=== PATIENT | female | born 1985 | race Caucasian/White ===

== ENCOUNTER 2019-07-15 09:39 | Outpatient (CLI) | payer MEDICAID, SELFPAY ==
--- NOTE | 2019-07-15 10:36 | NM_ITS ---
WS: [id number] NUCLEAR MEDICINE HIDA SCAN CLINICAL INFORMATION: ABDOMINAL PAIN TECHNIQUE: Following intravenous administration of 7.5 mCi of technetium 99m mebrofenin, images of th e abdomen were obtained over the course of 60 minutes. Next, gallbladder ejection fraction was determ ined by obtaining preprandial and one-hour postprandial images of the gallbladder following oral vasquez stion of Ensure. COMPARISON: Ultrasound June 20, 2019 FINDINGS: Normal hepatic uptake at 5 minutes. Normal hepatic excretion. Gallbladder is visualized by 10 minutes . No evidence of acute cholecystitis. Normal small bowel. No evidence of choledocholithiasis. Gallbladder ejection fraction 80% within normal limits. No evidence of chronic cholecystitis. NM/NM hepatobiliary w phar* [id number] IMPRESSION: 1. No evidence of acute or chronic cholecystitis. 2. Gallbladder ejection fraction 80% within normal limits
== END 2019-07-15 09:40 | disposition home or self-care (01) ==
LOC: RAD 09:40
PROVIDERS: Family Provider Nurse Practitioner Family; PCP Nurse Practitioner Family; Visit Provider Surgery
DX: R10.9 Unspecified abdominal pain (principal)
CPT/HCPCS: 78227; A9537

== ENCOUNTER 2019-08-05 11:09 | Day surgery (SDC) | payer MEDICAID, SELFPAY ==
[2019-08-02 10:12] VITALS: BMI 32.9
[2019-08-05] VITALS (12 sets, daily range): BP systolic 142–165; BP diastolic 77–99; PULSE 51–75; RESP 10–20; TEMP 36.5–36.9; O2SAT 97–100
[2019-08-05 12:41] LABS: OR HCG Qualitative Urine Negative (Negative)
--- NOTE | 2019-08-05 13:13 | ANES.PREANE2 ---
Pre-Anesthetic Assessment Pre-Anesthetic Assessment: Height/Weight: Height 1.63 m Weight 87.09 kg Temp Pulse Resp BP Pulse Ox 97.7 F 68 18 142/99 99 08/05/19 12:35 08/05/19 12:35 08/05/19 12:35 08/05/19 12:35 08/05/19 12:35 Preop Diagnosis: Biliary Colic Proposed Procedure: Operation Date: 08/05/19 13:55 Proposed Procedures p Laparoscopic Cholecystectomy 62089 R10.11(Not Applicable) - Darrel Yates MD Last intake: Intake Last Liquid Date 08/05/19 Last Liquid Time 07:30 Last Solid Date 08/04/19 Last Solid Time 21:00 Exam: Pre-Anes Outpt Exam: alert, oriented x 3, clear to auscultation bilaterally and regular rate & rhythm Airway: Submandibular: WNL Cervical ROM: WNL MP: 2 GI: Comments: biliary colic Musc/skel: Musc/skel: Lower Back Pain Comments: left radiculopathy Neuropsych: Neuropsych: Depression and WHITE Anesthetic Plan: ASA status: 3 Anesthesia: General PFSH Anesthesia PFSH: Medical History (Updated 07/27/19 @ 10:04 by Darrel Yates MD) Abdominal pain (Acute) Depression (Acute) Fatty infiltration of liver (Acute) Right upper quadrant abdominal pain (Acute) Family History (Updated 07/25/19 @ 13:23 by Myrna Spicer RN) Denies family history of Anesthesia complication Bleeding disorder Social History (Updated 07/25/19 @ 13:24 by Myrna Spicer RN) Smoking and tobacco status: never smoked Second hand smoke exposure: No Alcohol intake: never Adopted: No Caregiver/support person: Yes Lives independently: Yes Household members: spouse and family Housing: House Marital status: Highest education level completed: High School Graduate service: No Current occupational status: employed Current occupational exposures/hazards: No Pets and animals: Yes History of recent travel: No Sexually active: Yes Current gender identity: Female [place]/Congregational: Buddhism Special kenya needs: No Agree to transfusion: No Financial difficulty paying for basics: Decline to Answer Female Reproductive History: Date of last menstrual period: 08/01/19 Para: 4 Spontaneous abortions: Yes (2) Data Anesthesia Other Labs: Laboratory Results - last 48 hr 08/05/19 12:38 Urine HCG, Qual Negative Cardiac Studies: No Data to Display
[2019-08-05] MEDS: sodium chloride 0.9% 1,000 ML 30 ML IV (13:26)
--- NOTE | 2019-08-05 14:10 | PM.HPUD ---
H&P update H&P Update: DATE OF SURGERY/PROCEDURE: 08/05/19 DATE H&P PERFORMED: 07/25/19 H&P UPDATE INFORMATION: H&P completed within last 30 days and No changes to prior documentation PREOP DIAGNOSIS: Biliary Colic PLANNED PROCEDURE: Operation Date: 08/05/19 13:55 Proposed Procedures p Laparoscopic Cholecystectomy 69209 R10.11(Not Applicable) - Darrel Yates MD Full H&P Medications/Allergies: Current Medications: Current Medications Generic Name Dose Route Start Last Admin Trade Name Alfredoq PRN Reason Stop Dose Admin Sodium Chloride 1,000 mls @ 30 ml s/hr 08/05/19 12:45 08/05/19 13:26 Sodium Chloride 0.9% IV 08/06/19 12:44 30 mls/hr .Q24H ZEFERINO Administration Perinent History: Medical/Surgical History: Medical History (Updated 07/27/19 @ 10:04 by Darrel Yates MD) Abdominal pain (Acute) Depression (Acute) Fatty infiltration of liver (Acute) Right upper quadrant abdominal pain (Acute) Family History: Family History (Updated 07/25/19 @ 13:23 by Myrna Spicer RN) Denies family history of Anesthesia complication Bleeding disorder Social History: Social History Smoking and tobacco status: never smoked Second hand smoke exposure: No Alcohol intake: never Adopted: No Caregiver/support person: Yes Lives independently: Yes Household members: spouse and family Housing: House Marital status: Highest education level completed: High School Graduate service: No Current occupational status: employed Current occupational exposures/hazards: No Pets and animals: Yes History of recent travel: No Sexually active: Yes Current gender identity: Female [place]/Confucianism: Amish Special kenya needs: No Agree to transfusion: No Financial difficulty paying for basics: Decline to Answer
[2019-08-05] MEDS: lidocaine 2% INJ 20 mL INJECTION (14:58)
--- NOTE | 2019-08-05 15:37 | PM.OP ---
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 All questions have been answered and all concerns have been addressed to patient's satisfaction. Informed consent per chart Procedure: Patient was identified in the holding area and taken back to the operative suite, placed in supine position intubated by anesthesia . Time-out was done verifying the patient's name/date of /planned procedure and destination after the procedure, all were in agreement. SCDs confirmed to be functioning, preoperative antibiotics administered per protocol, and beta kyler protocol was confirmed. Patient was appropriately secured to the table, footboard was applied to the OR table, before prep and drape anesthesia was asked to tilt the table back and forth to make sure that the patient is appropriately secured and she was. Prep and drape of the abdomen was done under the usual sterile technique, followed by that Infraumbilical skin incision,skin incision was done by a 15 blade knife, and stay sutures were applied to the fascia and Ferro trocar technique was used to enter the abdominal without injuring any abdominal viscera, started by low flow gas insufflation followed by a high flow, started with a 10 mm laparoscope and under direct vision there was no evidence of any injuries, the scope then switched to a 30? ,10 millimeter scope and under direct visualization 5 millimeter trocar was inserted in the epigastric region followed by two 5 mm trocars were inserted in the right upper quadrant that was done after injection of local lidocaine 2% at all incision sites. Gallbladder showed chronic cholecystitis Patient was then positioned in the head up and tilted to the left dissection started by taking adhesions down using [place] forceps with heat, continued dissection until I identified the critical view of the cystic duct and cystic artery where seen connected to the gallbladder. Clips were applied on the cystic duct towards the common bile duct 1 towards the gallbladder then divided is in sharp scissors, 3 clips were then applied onto the cystic artery and 1 towards the gallbladder and divided by sharp scissors. There was additional vessel traversing the gallbladder fossa that was clipped as well and divided Dissection was then carried along of the gallbladder from the gallbladder fossa using cautery as well as sharp dissection with heat energy. The gallbladder then was dissected out from the gallbladder fossa totally , cholecystectomy was then achieved and was placed in an Endo Catch bag and then retrieved from the Ferro trocar site under direct visualization using a 5 mm 30? scope through the epigastric trocar, specimen was then passed to the circulating nurse to go for permanent pathology,irrigation and hemostasis was done to the gallbladder fossa after hemostasis was secured, final survey laparoscopy was done that showed no injuries. Suction irrigation was obtained The infraumbilical fascial defect was then closed using interrupted Vicryl sutures using a fascial closure device ;Amari Beckford under direct visualization Gas was allowed to deflate,Trocars were then taken out under direct vision there was no evidence of bleeding Specimen was passed to the circulating nurse for permanent pathology. No drains were placed and the infra umbilical incision as well as all trocar sites were closed by by 4-0 Monocryl to approximate the skin edges of the Infraaumbilical incision, dressing was applied in the form of Dermabond and the patient patient got extubated and was taken to recovery area in a stable condition. Count of sponges, needles and instruments were completed at the end of the procedure I was present for the whole entire procedure.
[2019-08-05] MEDS: fentaNYL 50 mcg/mL INJ 2mL IVP ×2 (15:51→15:56)
[2019-08-05] MEDS: morphine 4 mg/mL SDV 1 mL 2 MG IVP ×2 (16:00→16:02)
[2019-08-05] MEDS: HYDROcodone-acetaminophen 5-325 mg Tablet 1 TAB PO (16:35)
== END 2019-08-05 17:11 | disposition home or self-care (01) ==
PROVIDERS: Family Provider Nurse Practitioner Family; PCP Nurse Practitioner Family; Visit Provider Surgery
PROC: 0FT44ZZ Resection of Gallbladder, Percutaneous Endoscopic Approach (ICD-10-PCS; CPT 47562; principal; 2019-08-05 13:55)
DX: K81.1 Chronic cholecystitis (principal)
CPT/HCPCS: 47562; 12345; 81025; 84703; 88304; J0131; J0690; J1100; J2001; J2250; J2270; J2405; J2704; J2710; J3010; J3490; J7030

== ENCOUNTER 2019-09-16 19:05 | Emergency (ER) | payer MEDICAID, SELFPAY ==
[2019-09-16 19:34] VITALS: BP 170/115; PULSE 98; RESP 16; TEMP 37.3; O2SAT 98; BMI 30.9
--- NOTE | 2019-09-16 19:59 | W.ED.GENADLT ---
HPI - General Adult General: Chief complaint: General Medical Stated complaint: sore throat Time Seen by Provider: 09/16/19 19:51 Source: patient Mode of arrival: ambulatory Limitations: no limitations History of Present Illness: HPI narrative: Patient presents with sore throat since yesterday. Patient also reports a subjective fever. Patient appears mildly unwell. Patient denies any cough or nasal drainage or shortness of breath. Patient denies any exposure to known case of coronavirus. Patient reports that this feels like it when she has strep. Review of Systems General: Reports: 10 or more systems reviewed and unremarkable except in HPI and below ENMT: Reports: throat pain PFSH ED PFSH: Social History Smoking and tobacco status: current every day smoker cigarettes Packs smoked per day: 0.25 Second hand smoke exposure: No Alcohol intake: never Adopted: No Caregiver/support person: Yes Lives independently: Yes Household members: spouse and family Housing: House Marital status: Highest education level completed: High School Graduate service: No Current occupational status: unemployed Current occupational exposures/hazards: No Pets and animals: Yes History of recent travel: No Sexually active: Yes Current gender identity: Female [place]/Shinto: Nondenominational Special kenya needs: No Agree to transfusion: No Financial difficulty paying for basics: Decline to Answer Female Reproductive History: Date of last menstrual period: 09/03/19 Para: 4 Spontaneous abortions: Yes (2) Physical Exam Const: COMMON NORMALS: no apparent distress and oriented x3 GENERAL APPEARANCE: cooperative HENMT: COMMON NORMALS: normocephalic, external ears normal, EAC's normal, TM's normal bilaterally and external nose normal HEAD & SCALP: normal to inspection and normocephalic FACE & SINUS: normal facial exam NOSE: external nose normal GENERAL EAR: hearing not grossly impaired EXTERNAL EAR: Yes external ears normal EXTERNAL AUDITORY CANAL: EAC's normal TYMPANIC MEMBRANE: TM's normal bilaterally MOUTH: oral and palatal mucosa normal THROAT: posterior oropharynx abnormal erythema Eye: COMMON NORMALS: PERRL and EOMs intact bilaterally PUPIL: Yes PERRL Neck/C-Spine: COMMON NORMALS: full ROM and no lymphadenopathy Lymph: LYMPHATIC: no lymphedema noted Chest: COMMONS NORMALS: inspection of chest normal and palpation of chest normal Resp: COMMON NORMALS: normal respiratory effort and clear to auscultation bilaterally AUSCULTATION: clear to auscultation bilaterally Cardio: COMMON NORMALS: regular rate and regular rhythm RATE: regular rate RHYTHM: regular rhythm GI: COMMON NORMALS: normal to inspection, nondistended, normoactive bowel sounds and non-tender : COMMON NORMALS: Yes no CVA tenderness BLADDER/KIDNEY EXAM: Yes no CVA tenderness Back/Pelvis: COMMON NORMALS: no CVA tenderness and thoracic and lumbar spine normal to inspection Extremity: COMMON NORMALS: normal to inspection GENERAL: No edema Neuro: COMMON NORMALS: oriented x3, moves all extremities and no focal motor deficits Psych: COMMON NORMALS: mental status grossly normal and cooperative Skin: COMMON NORMALS: no rashes or lesions noted GENERAL SKIN EXAM: no rashes or lesions noted Course Vital Signs: Vital signs: Vital Signs Temperature 99.1 F 09/16/19 19:34 Pulse Rate 98 09/16/19 19:34 Respiratory Rate 16 09/16/19 19:34 Blood Pressure 170/115 09/16/19 19:34 Pulse Oximetry 98 09/16/19 19:34 MDM - General Adult MDM Narrative: Medical decision making narrative: Patient comes in today with complaints of sore throat and low-grade fever. Exam notes posterior pharynx is slightly erythematous with some swelling of the uvula. Airway is open. No cervical lymphadenopathy is noted. Vital signs are normal. Differential diagnosis includes strep pharyngitis, uveitis, viral syndrome. Strep test was negative. Patient was given a dose of dexamethasone for pain and discomfort. Encourage plenty of fluids Tylenol and ibuprofen. Prescription written for cephalexin 500 twice a day for 10 days. Recommend monitoring for culture results and started antibiotics if needed. Patient reports understanding and agreed to plan. Lab Data: Labs: Lab Results 09/16/19 Range/Units 20:09 Group A Strep Rapi d Negative (Negative) Discharge Plan Discharge Patient Disposition: Home, Self-Care Clinical Impression: Pharyngitis Qualifiers: Pharyngitis/tonsillitis etiology: unspecified etiology Qualified Code(s): J02.9 - Acute pharyngitis, unspecified Condition: Stable Prescriptions: New cephalexin 500 mg capsule 500 mg PO BID 10 Days Qty: 20 RF: 0 No Action quetiapine [Seroquel] 50 mg tablet 50 mg PO BEDTIME RF: 0 Discharge Orders: Discharge Order (Routine); Ordered 09/16/19 Ordered By: Matt Kumari Referrals: Milla Ac FNP [Primary Care Provider] - Discharge Diet: Advance as tolerated Discharge Activity: Increase activity as tolerated Patient Instructions: Pharyngitis (ED) Activity Restrictions/Additional Instructions: Drink plenty of fluids Medications as directed Acetaminophen and ibuprofen for pain and fever Follow-up as needed REturn to ER for for shortness of breath or new concerns Coding Level of Care Code ED Side Framer for Chg Fwd Exam Comprehensive
--- NOTE | 2019-09-16 20:17 | PC.NURSE ---
surgery to have gallbladder removed 08/05/2019
[2019-09-16 20:48] LABS: Rapid Strep A Test Negative (Negative)
[2019-09-16] MEDS: dexamethasone 4 mg Tablet 10 MG PO (21:18)
[2019-09-16 21:22] VITALS: BP 161/97; PULSE 72; RESP 16; TEMP 36.9; O2SAT 94
== END 2019-09-16 21:23 | disposition home or self-care (01) ==
PROVIDERS: Emergency Provider Nurse Practitioner Family; Family Provider Nurse Practitioner Family; PCP Nurse Practitioner Family
DX: J02.9 Acute pharyngitis, unspecified (principal); F17.210 Nicotine dependence, cigarettes, uncomplicated
CPT/HCPCS: 12345; 87081; 87880; 99281; 99283; J8540

== ENCOUNTER 2019-12-21 12:39 | Emergency (ER) | payer MEDICAID, SELFPAY ==
[2019-12-21 12:41] VITALS: BP 138/100; PULSE 73; RESP 16; TEMP 36.7; O2SAT 98; BMI 32.4
--- NOTE | 2019-12-21 13:04 | ED_ITS ---
HPI - General Adult General: Chief complaint: Nausea/Vomiting/Diarrhea Stated complaint: multiple complaints Time Seen by Provider: 12/21/19 12:51 History of Present Illness: HPI narrative: Patient complained about headache that started on her way to work today also just feeling achy all over being treated for a tick bite on her left forearm with doxycycline x3 days. She denies any problems doxycycline the past has no signs symptoms of allergic reaction. Does have a rash to left forearm around the tick bite. complaint: Headache muscle aches Onset (ago): hour(s) Location: head, chest, back and upper extremity Radiation: non-radiation Severity: moderate Severity scale (1-10): 5 Quality: aching Pain Consistency: constant Relieving factors: none Exacerbating factors: none Associated symptoms: Reports no associated symptoms, headache(s) and rash (Left forearm); Deny chest pain, dyspnea, nausea or vomiting Treatments prior to arrival: none Review of Systems Const: Denies: fever(s), chills or body aches Eyes: Denies: change in vision or blurry vision ENMT: Denies: throat pain or nasal congestion Card: Denies: chest pain or dyspnea on exertion Resp: Denies: dyspnea, productive cough or non-productive cough GI: Denies: abdominal pain, nausea or vomiting Musc: Reports: other (Muscle aches); Denies: extremity pain Skin/Breast: Reports: rash (Left forearm) Neuro: Reports: headache(s) Psych: Denies: anxiety or depression Abhishek/Lymph: Denies: easy bruising PFSH ED PFSH: Medical History (Updated 09/24/19 @ 00:00 by ) Abdominal pain Depression Fatty infiltration of liver Right upper quadrant abdominal pain Patient undergone laparoscopic cholecystectomy today Surgical History History of cholecystectomy (08/05/19) History of D&C 2x Family History Denies family history of Anesthesia complication Bleeding disorder Social History Smoking and tobacco status: current every day smoker cigarettes Packs smoked per day: 0.25 Second hand smoke exposure: No Alcohol intake: never Adopted: No Caregiver/support person: Yes Lives independently: Yes Household members: spouse and family Housing: House Marital status: Highest education level completed: High School Graduate service: No Current occupational status: unemployed Current occupational exposures/hazards: No Pets and animals: Yes History of recent travel: No Sexually active: Yes Current gender identity: Female [place]/Scientologist: Restoration Special ken[place] needs: No Agree to transfusion: No Financial difficulty paying for basics: Decline to Answer Female Reproductive History: Date of last menstrual period: 11/08/19 Para: 4 Spontaneous abortions: Yes (2) Physical Exam Const: COMMON NORMALS: no acute distress, average body habitus and patient oriented x3 HENMT: COMMON NORMALS: normocephalic HEAD & SCALP: normal to inspection and normocephalic FACE & SINUS: normal facial exam Eye: COMMON NORMALS: conjunctivae normal GENERAL EYE: appearance normal, both eyes and all related structures CONJUNCTIVA: Yes conjunctivae normal Neck/C-Spine: COMMON NORMALS: no JVD Chest: COMMONS NORMALS: normal inspection of the chest Resp: COMMON NORMALS: normal respiratory effort and clear to auscultation bilaterally AUSCULTATION: clear to auscultation bilaterally Cardio: COMMON NORMALS: no JVD, regular rate and regular rhythm RATE: regular rate RHYTHM: regular rhythm GI: COMMON NORMALS: Normal to inspection, nondistended, normoactive bowel s ounds present Extremity: COMMON NORMALS: normal to inspection and full ROM Neuro: COMMON NORMALS: patient oriented x3 Skin: COMMON NORMALS: negative for no rashes or lesions noted (Left forearm has circular rash near the wrist approximately 2 inches in diameter) GENERAL SKIN EXAM: rashes and/or lesions noted (Left forearm has circular rash near the wrist approximately 2 inches in diameter) Course Vital Signs: Vital signs: Vital Signs Temperature 98.1 F 12/21/19 12:41 Pulse Rate 73 12/21/19 12:41 Respiratory Rate 16 12/21/19 12:41 Blood Pressure 138/100 12/21/19 12:41 Pulse Oximetry 98 12/21/19 12:41 Discharge Plan Discharge Prescriptions: No Action quetiapine [Seroquel] 50 mg tablet 50 mg PO BEDTIME RF: 0 Seroquel 50 mg Tablet RF: 0 doxycycline hyclate 100 mg Capsule 100 mg PO BID RF: 0 Coding Level of Care Code ED Hose Inspector And Patcher for Chg Vika
[2019-12-21 13:35] LABS: Basophils # 0.1 10^3/uL (0.0-0.1); Basophils % 0.5 %; Eosinophils # 0.2 10^3/uL (0.0-0.8); Eosinophils % 1.8 %; Hemoglobin 14.7 g/dL (11.5-15.3); Lymphocytes # 3.5 10^3/uL (0.8-4.8); Lymphocytes % 30.6 %; Mean Corpuscular HGB Conc 33.4 g/dL (30.0-36.0); Mean Corpuscular Hemoglobin 29.7 pg (28.0-34.0); Mean Corpuscular Volume 88.9 fL (81-99); Mean Platelet Volume 11.8 fL (7.4-10.4); Monocytes # 0.7 10^3/uL (0.2-0.9); Monocytes % 5.7 %; Neutrophils # 6.9 10^3/uL (1.8-7.7); Nucleated Red Blood Cells % 0 %; Platelet Count 181 10^3/cmm (130-400); Red Blood Count 4.95 10^6/uL (4.1-5.3); Red Cell Distribution Width 12.5 % (12.1-15.1); White Blood Count 11.4 10^3/uL (4.0-10.0)
[2019-12-21 13:51] LABS: Alanine Aminotransferase 28 U/L (0-33); Albumin Level 4.4 g/dL (3.5-5.2); Alkaline Phosphatase 80 IU/L (35-105); Anion Gap 16.7 (5-19); Aspartate Amino Transferase 17 U/L (0-32); Blood Urea Nitrogen 16 mg/dL (6-20); Calcium 10.3 mg/dL (8.5-10.5); Carbon Dioxide 24 mmol/L (22-29); Chloride 101 mmol/L (98-107); Globulin 2.5 g/dL (1.3-4.6); Glomerular Filtration Rate 82.1 mL/min (90-130); Glucose 103 mg/dL (65-115); Osmolality Calculated 283 mOsm/kg (285-295); Potassium 3.7 mmol/L (3.5-5.1); Sodium 138 mmol/L (136-145); Total Bilirubin 0.2 mg/dL (0.15-1.2); Total Protein 6.9 g/dL (6.6-8.7)
--- NOTE | 2019-12-21 13:53 | XRR_ITS ---
PROCEDURE INFORMATION: Exam: XR Chest, 1 View Exam date and time: 12/21/2019 1:54 PM Age: 34 years old Clinical indication: Patient HX: Chest pain x 4 days TECHNIQUE: Imaging protocol: XR of the chest Views: 1 view. COMPARISON: No relevant prior studies available. FINDINGS: Lungs: Unremarkable. No consolidation. Pleural space: Unremarkable. No pleural effusion. No pneumothorax. Heart/Mediastinum: Unremarkable. No cardiomegaly. Bones/joints: Unremarkable. XR/XR chest 1V portable [id number] IMPRESSION: No acute findings.
[2019-12-21] MEDS: ketorolac 10 mg Tablet PO (14:19)
[2019-12-21] MEDS: ondansetron 4 MG Tablet PO (14:20)
[2019-12-21 15:03] LABS: Glucose Urine UA Norm (Normal); Protein Urine Neg (Negative); Urine Appearance Clear (CLEAR); Urine Color Yellow (Yellow); pH Urine 6 (5-7)
[2019-12-21 15:04] LABS: Add Urine Culture? Yes; Add Urine Microscopic? YES; Bacteria Urine 2+; Bilirubin Urine Neg (NEGATIVE); Blood Urine 2+ (Negative); Ketones Urine Negative (Negative); Leukocyte Esterase Urine Negative (Negative); Mucus Urine 2+; Nitrate Urine Negative (Negative); RBC Urine RARE /hpf (0-2); Squamous Epithelial Cell Urine 0-4 (0-5); Urobilinogen Urine Norm (Negative); WBC Urine 0-4 /hpf (0-5)
[2019-12-21 15:45] VITALS: BP 154/102; PULSE 59; RESP 16; O2SAT 99
[2019-12-24 12:25] LABS: Lyme AB Screen <0.90 index
[2019-12-25 16:51] LABS: E. Chaffeensis AB IGG <1:64; E. Chaffeensis AB IGM <1:20
[2019-12-25 22:31] LABS: RMSF IGG NOT DETECTED; RMSF IGM NOT DETECTED
== END 2019-12-21 15:46 | disposition home or self-care (01) ==
PROVIDERS: Emergency Provider Nurse Practitioner Family; PCP Nurse Practitioner Family
DX: R11.2 Nausea with vomiting, unspecified (principal); R19.7 Diarrhea, unspecified; F17.210 Nicotine dependence, cigarettes, uncomplicated
CPT/HCPCS: 12345; 36415; 71045; 80053; 81001; 85025; 86618; 86666; 86757; 87086; 99282; 99283; Q0162

== ENCOUNTER 2020-05-04 13:13 | Emergency (ER) | payer MEDICAID, SELFPAY ==
[2020-05-04 13:17] VITALS: BP 164/113; PULSE 90; RESP 18; TEMP 36.4; O2SAT 100; BMI 29.9
--- NOTE | 2020-05-04 13:51 | XR_ITS ---
WS: [id number] XR chest 1V portable [id number] REASON FOR EXAM: dyspnea/cough FINDINGS: The chest is unchanged compared to previous examination of 12/21/2019. The heart and mediastinum are within normal limits. No active pulmonary parenchymal or pleural disease is identified. Bony thorax is unremarkable. XR/XR chest 1V portable [id number] IMPRESSION: No significant chest abnormality.
--- NOTE | 2020-05-04 14:22 | W.ED.CHESTPA ---
HPI - Chest Pain General: Chief Complaint: Chest Pain Stated Complaint: CP, SOB, IS IN QUARANTINE AWAITING TEST RESULTS Time Seen by Provider: 05/04/20 13:33 History of Present Illness: HPI narrative: 34-year-old female who has been treat being treated as a presumed positive Covid after an inconclusive test result on 04 27. She comes in complaining of chest pain worse with palpation worse with a deep breath. She denies any fever. She has not had any vomiting or diarrhea. MD complaint: chest pain Onset (ago): day(s) Timing of current episode: constant Pain location: substernal and left chest Pain radiation: none Severity: severe Quality: sharp Relieving factors: nothing Exacerbating factors: inspiration and palpation Associated symptoms: Reports vomiting; Deny abdominal pain, diaphoresis, dyspnea, fever(s), leg edema, nausea, palpitations, sense of impending doom or syncope Treatment prior to arrival: none Review of Systems Const: Denies: fever(s) or diaphoresis ENMT: Denies: throat pain, ear or mastoid pain, nasal discharge or nasal congestion Card: Denies: palpitations or syncope Resp: Denies: dyspnea GI: Reports: vomiting; Denies: abdominal pain or nausea : Denies: flank pain, difficulty voiding, dysuria, urinary frequency or urinary urgency Skin/Breast: Denies: rash or pruritus PFSH ED PFSH: Medical History Abdominal pain Depression Fatty infiltration of liver Right upper quadrant abdominal pain Patient undergone laparoscopic cholecystectomy today Surgical History History of cholecystectomy (08/05/19) History of D&C 2x Family History Denies family history of Anesthesia complication Bleeding disorder Social History Smoking and tobacco status: current every day smoker cigarettes Packs smoked per day: 0.25 Second hand smoke exposure: No Alcohol intake: never Adopted: No Caregiver/support person: Yes Lives independently: Yes Household members: spouse and family Housing: House Marital status: Highest education level completed: High School Graduate service: No Current occupational status: unemployed Current occupational exposures/hazards: No Pets and animals: Yes History of recent travel: No Sexually active: Yes Current gender identity: Female [place]/Mormon: Mosque Special [place] needs: No Agree to transfusion: No Financial difficulty paying for basics: Decline to Answer Female Reproductive History: Date of last menstrual period: 11/08/19 Para: 4 Spontaneous abortions: Yes (2) Physical Exam Const: COMMON NORMALS: no acute distress GENERAL APPEARANCE: cooperative and comfortable ORIENTATION/CONSCIOUSNESS: Yes awake, Yes oriented to person, Yes oriented to place and Yes oriented to time HENMT: COMMON NORMALS: normocephalic, atraumatic and hearing grossly normal bilaterally HEAD & SCALP: normocephalic and atraumatic Neck/C-Spine: COMMON NORMALS: no JVD Chest: OTHER: Pain reproducible with palpation along the sternum as well as with deep inspiration Resp: COMMON NORMALS: normal respiratory effort, No retractions, No use of accessory muscles and clear to auscultation bilaterally AUSCULTATION: clear to auscultation bilaterally Cardio: COMMON NORMALS: no JVD, regular rate, regular rhythm and No murmurs present (Cardio) RATE: regular rate RHYTHM: regular rhythm GI: COMMON NORMALS: Soft to palpation and No hepatosplenomegaly present AUSCULTATION: Yes normoactive bowel sounds PALPATION: Yes Soft to palpation, No Tenderness to palpation present (GI), No Guarding due to palpation present (GI) and Yes No hepatosplenomegaly present Extremity: COMMON NORMALS: normal to inspection, capillary refill normal, no clubbing, cyanosis or edema, no calf tenderness and no pedal edema Neuro: SENSORIUM/ORIENTATION: Yes oriented to person, Yes oriented to place and Yes oriented to time Skin: COMMON NORMALS: no rashes or lesions noted GENERAL SKIN EXAM: no rashes or lesions noted Course Vital Signs: Vital signs: Vital Signs Temperature 97.5 F L 05/04/20 13:17 Pulse Rate 75 05/04/20 16:09 Respiratory Rate 15 05/04/20 16:09 Blood Pressure 131/81 05/04/20 16:09 Pulse Oximetry 98 05/04/20 16:09 MDM - Chest Pain MDM Narrative: Medical decision making narrative: Reviewed findings with the patient. White counts elevated due to the steroids. This is more pleuritic chest pain and nature. We will go ahead and discharge home hydrocodone as needed if has any worsening or change symptoms return Lab Data: Labs: Lab Results 05/04/20 05/04/20 05/04/20 Range/Units 14:24 14:24 14:24 WBC 22.3 H (4.0-10.0) 10^3/ uL RBC 5.01 (4.1-5.3) 10^6/u L Hgb 15.2 (11.5-15.3) g/dL Hct 45.2 (37.0-47.0) % MCV 90.2 (81-99) fL MCH 30.3 (28.0-34.0) pg MCHC 33.6 (30.0-36.0) g/dL RDW 13.4 (12.1-15.1) % Plt Count 244 (130-400) 10^3/c mm MPV 11.1 H (7.4-10.4) fL Neut % (Auto) 58.4 % Lymph % (Auto) 33.2 % [place] % (Auto) 5.2 % Eos % (Auto) 1.7 % Baso % (Auto) 0.2 % Neut # (Auto) 13.03 H (1.8-7.7) 10^3/u L Lymph # (Auto) 7.4 H (0.8-4.8) 10^3/u L [place] # (Auto) 1.2 H (0.2-0.9) 10^3/u L Eos # (Auto) 0.4 (0.0-0.8) 10^3/u L Baso # (Auto) 0.1 (0.0-0.1) 10^3/u L Nucleated RBC % (a uto) 0 % Nucleated RBCs # 0.0 /100WBC D-Dimer 0.36 (0-0.59) ug/mIFE U Sodium 138 (136-145) mmol/L Potassium 3.8 (3.5-5.1) mmol/L Chloride 105 (98-107) mmol/L Carbon Dioxide 24 (22-29) mmol/L Anion Gap 12.8 (5-19) BUN 30 H (6-20) mg/dL Creatinine 0.8 (0.5-0.9) mg/dL GFR Calculation 82.1 L (90-130) mL/min Glucose 114 (65-115) mg/dL Calculated Osmolal ity 293 (285-295) mOsm/k g Calcium 9.0 (8.5-10.5) mg/dL Total Bilirubin 0.2 (0.15-1.2) mg/dL AST 13 (0-32) U/L ALT 43 H (0-33) U/L Alkaline Phosphata se 87 (35-105) IU/L Total Protein 7.0 (6.6-8.7) g/dL Albumin 4.1 (3.5-5.2) g/dL Globulin 2.9 (1.3-4.6) g/dL Discharge Plan Discharge Patient Disposition: Home Clinical Impression: Pleurisy Condition: Stable Prescriptions: New hydrocodone-acetaminophen 5-325 mg tablet 1 tab PO Q6H PRN (Reason: pain) Qty: 15 RF: 0 No Action quetiapine [Seroquel] 50 mg tablet 50 mg PO BEDTIME RF: 0 azithromycin 250 mg Tablet See Rx Instructions .ROUTE .COMPLEX RF: 0 dexamethasone 6 mg Tablet 6 mg PO DAILY RF: 0 budesonide 0.5 mg/2 mL Suspension For Nebulization 0.5 mg INHALATION BID RF: 0 Pristiq 100 mg Tablet Extended Release 24 Hr 100 mg PO DAILY RF: 0 Discharge Orders: Discharge Order (Routine); Ordered 05/04/20 Ordered By: Dilip Nath Referrals: Milla Ac FNP [Primary Care Provider] - Coding Level of Care Code ED [facility] Lab Technician for Imani Sandy
[2020-05-04 14:39] LABS: Basophils # 0.1 10^3/uL (0.0-0.1); Basophils % 0.2 %; Eosinophils # 0.4 10^3/uL (0.0-0.8); Eosinophils % 1.7 %; Hematocrit 45.2 % (37.0-47.0); Hemoglobin 15.2 g/dL (11.5-15.3); Lymphocytes # 7.4 10^3/uL (0.8-4.8); Lymphocytes % 33.2 %; Mean Corpuscular HGB Conc 33.6 g/dL (30.0-36.0); Mean Corpuscular Hemoglobin 30.3 pg (28.0-34.0); Mean Corpuscular Volume 90.2 fL (81-99); Mean Platelet Volume 11.1 fL (7.4-10.4); Monocytes # 1.2 10^3/uL (0.2-0.9); Monocytes % 5.2 %; Neutrophils # 13.03 10^3/uL (1.8-7.7); Neutrophils % 58.4 %; Nucleated Red Blood Cells % 0 %; Platelet Count 244 10^3/cmm (130-400); Red Blood Count 5.01 10^6/uL (4.1-5.3); Red Cell Distribution Width 13.4 % (12.1-15.1); White Blood Count 22.3 10^3/uL (4.0-10.0)
[2020-05-04 14:53] LABS: D Dimer 0.36 ug/mIFEU (0-0.59)
[2020-05-04 14:59] LABS: Alanine Aminotransferase 43 U/L (0-33); Albumin Level 4.1 g/dL (3.5-5.2); Alkaline Phosphatase 87 IU/L (35-105); Anion Gap 12.8 (5-19); Aspartate Amino Transferase 13 U/L (0-32); Blood Urea Nitrogen 30 mg/dL (6-20); Carbon Dioxide 24 mmol/L (22-29); Chloride 105 mmol/L (98-107); Globulin 2.9 g/dL (1.3-4.6); Glomerular Filtration Rate 82.1 mL/min (90-130); Glucose 114 mg/dL (65-115); Osmolality Calculated 293 mOsm/kg (285-295); Potassium 3.8 mmol/L (3.5-5.1); Sodium 138 mmol/L (136-145); Total Bilirubin 0.2 mg/dL (0.15-1.2)
[2020-05-04 15:18] LABS: Slide Review Slide Review Perform
[2020-05-04 16:09] VITALS: BP 131/81; PULSE 75; RESP 15; O2SAT 98
== END 2020-05-04 16:11 | disposition home or self-care (01) ==
PROVIDERS: Emergency Provider Family Medicine; PCP Nurse Practitioner Family
DX: R09.1 Pleurisy (principal); F17.210 Nicotine dependence, cigarettes, uncomplicated
CPT/HCPCS: 12345; 71045; 80053; 85025; 85378; 99282; 99283

== ENCOUNTER 2021-04-18 09:43 | Emergency (ER) | payer MEDICAID, SELFPAY ==
[2021-04-18 09:52] VITALS: BP 153/87; PULSE 84; RESP 15; TEMP 36.9; O2SAT 96; BMI 29.9
--- NOTE | 2021-04-18 11:39 | ED_ITS ---
HPI - Skin/Abscess/Foreign Bdy General: Chief complaint: General Medical Stated complaint: PT STATES GLANDS SWOLLEN AND SORE IN NECK Time Seen by Provider: 04/18/21 11:10 Source: patient Mode of arrival: ambulatory Limitations: no limitations History of Present Illness: HPI narrative: Patient is a 35-year-old female who presents to ED today with a complaint of a rash to her posterior scalp as well as a lump to the right side of her neck. Patient states symptoms of been pre sent approximately 3 weeks. She states the rash was initially noticed to her bilateral posterior auricular regions and attributed it secondary to her glasses and mask wearing. Patient states since the rash has spread to the base of her scalp. She states it was initially pruritic but now describes it as more of a burning sensation. She states she has been on amoxicillin previously but this did not seem to help. No new household/environmental exposures. MD complaint: rash Onset (ago): week(s) Tetanus up to date: yes Location: head (scalp) Severity: mild Quality: burning Pain Consistency: constant Relieving factors: none Exacerbating factors: none Context: none Associated symptoms: Deny chills, fever(s), nausea or vomiting Treatments prior to arrival: none and antibiotic (amoxicillin ) Review of Systems Const: Denies: fever(s), chills, body aches, fatigue or malaise Eyes: Denies: change in vision, blurry vision, photophobia, floaters or seeing flashes ENMT: Denies: throat pain, enlarged tonsils, odynophagia, hoarseness, swelling of lips/tongue, ear or mastoid pain, ear discharge, nasal discharge or nasal congestion Card: Denies: chest pain Resp: Denies: dyspnea GI: Denies: nausea or vomiting Musc: Denies: neck pain, back pain, extremity pain or joint pain Skin/Breast: Reports: rash Neuro: Denies: headache(s), numbness in extremities, weakness in extremities or sensory changes PFS ED PFSH: Medical History (Updated 04/18/21 @ 11:47 by GERMAINE Morrell) Abdominal pain Depression Fatty infiltration of liver Right upper quadrant abdominal pain Patient undergone laparoscopic cholecystectomy today Surgical History History of cholecystectomy (08/05/19) History of D&C 2x Family History Denies family history of Anesthesia complication Bleeding disorder Social History Smoking and tobacco status: current every day smoker cigarettes Packs smoked per day: 0.25 Second hand smoke exposure: No Alcohol intake: never Adopted: No Caregiver/support person: Yes Lives independently: Yes Household members: spouse and family Housing: House Marital status: Highest education level completed: High School Graduate service: No Current occupational status: unemployed Current occupational exposures/hazards: No Pets and animals: Yes History of recent travel: No Sexually active: Yes Current gender identity: Female [place]/Holiness: Congregational Special [place] needs: No Agree to transfusion: No Financial difficulty paying for basics: Decline to Answer Female Reproductive History: Date of last menstrual period: 11/08/19 Para: 4 Spontaneous abortions: Yes (2) Physical Exam Const: COMMON NORMALS: no acute distress, average body habitus, patient oriented x3, no limitations, healthy appearing, alert and well nourished GENERAL APPEARANCE: cooperative ORIENTATION/CONSCIOUSNESS: Yes awake, Yes oriented to person, Yes oriented to place and Yes oriented to time HENMT: COMMON NORMALS: normocephalic, atraumatic, EAC's normal, TM's normal bilaterally and Normal external nose present HEAD & SCALP: normal to inspection, normocephalic and atraumatic FACE & SINUS: normal facial exam NOSE: Normal external nose present EXTERNAL AUDITORY CANAL: EAC's normal TYMPANIC MEMBRANE: TM's normal bilaterally MOUTH: Normal oral and palatal mucosa present, lip normal and tongue normal THROAT: posterior oropharynx normal, tonsils normal and uvula midline Neck/C-Spine: COMMON NORMALS: full ROM and no meningeal signs GENERAL: Yes lymphadenopathy mobile and tender NECK IMAGES: 1. solitary mildly enlarged and tender lymph node; measures about 1cm; mobile Neuro: COMMON NORMALS: patient oriented x3 SENSORIUM/ORIENTATION: Yes alert, Yes oriented to person, Yes oriented to place and Yes oriented to time MENINGEAL SIGNS: Yes no meningeal signs Skin: NARRATIVE SKIN EXAM: patient has an erythematous coalescing rash to the base of her scalp that appears edematous; there is no scaling or plaques; remainder of scalp appears clear; there are a few areas of very minor skin breakdown; no fluid filled lesions Course Vital Signs: Vital signs: Vital Signs Temperature 98.5 F 04/18/21 09:52 Pulse Rate 84 04/18/21 09:52 Respiratory Rate 15 04/18/21 09:52 Blood Pressure 153/87 04/18/21 09:52 Pulse Oximetry 96 04/18/21 09:52 MDM - Skin/Abscess/Foreign Bdy MDM Narrative: Medical decision making narrative: DDx: tinea capitis, scalp psoriasis, seborrheic dermatitis, scalp folliculitis, pemphigus foliaceus. She has no mucous membrane involvement. She has a solitary R cervical swollen lymph node. At this time will place on Doxycycline and have her start using a medicated shampoo to see if this might alleviate or improve rash. If not I recommend followup with Dr. Capone/dermatology for further evaluation. Possibly initiation of systemic steroids if condition appears inflammatory. Discharge Plan Discharge Patient Disposition: Home Clinical Impression: Lesion of skin of scalp, Lymphadenopathy, cervical Condition: Stable Prescriptions: New Bactrim DS 800-160 mg tablet 2 tab PO BID 7 Days Qty: 28 RF: 0 No Action quetiapine [Seroquel] 50 mg tablet 50 mg PO BEDTIME RF: 0 azithromycin 250 mg Tablet See Rx Instructions .ROUTE .COMPLEX RF: 0 dexamethasone 6 mg Tablet 6 mg PO DAILY RF: 0 budesonide 0.5 mg/2 mL Suspension For Nebulization 0.5 mg INHALATION BID RF: 0 Pristiq 100 mg Tablet Extended Release 24 Hr 100 mg PO DAILY RF: 0 hydrocodone-acetaminophen 5-325 mg tablet 1 tab PO Q6H PRN (Reason: pain) Qty: 15 RF: 0 Discharge Orders: Discharge ED (Routine); Ordered 04/18/21 Ordered By: Wendy John Referrals: Milla Ac FNP [Primary Care Provider] - Coding Level of Care Code ED Gastroenterology Professor for Imani Sandy
--- NOTE | 2021-04-20 11:10 | PC.SOCIAL ---
Referral per ED provider Wendy John for Dermatology called to clinic spoke to Sonya and she will review and call patient with an appt.
--- NOTE | 2021-04-29 14:06 | DCPLANNER ---
Addendum entered by Sarah Coronado 08/20/21 12:16: Patient had a follow up appointment scheduled for 08.02.21 with dermatology - patient did not attend appointment. Original Note: platform material handler manager called the dermatology clinic to confirm if a follow up appointment had been scheduled for patient. platform material handler manager spoke with Sonya, gave clinic patients information. A follow up appointment was scheduled for Monday, August 02, [address] at 8:[address] Capone. Clinic will call patient with appointment information.
== END 2021-04-18 11:51 | disposition home or self-care (01) ==
PROVIDERS: Emergency Provider Physician Assistant; PCP Nurse Practitioner Family
DX: L98.9 Disorder of the skin and subcutaneous tissue, unspecified (principal); R59.1 Generalized enlarged lymph nodes; F17.210 Nicotine dependence, cigarettes, uncomplicated
CPT/HCPCS: 99281